=== PATIENT | female | born 1990 | race Caucasian/White ===

== ENCOUNTER 2017-11-27 21:51 | Emergency (ER) | payer BC ==
--- NOTE | 2017-11-27 22:25 | EDM.PDOC ---
ED HPI GENERAL MEDICAL PROBLEM - General Chief Complaint: General Stated Complaint: abd pain illeostomy Time Seen by Provider: 11/27/17 21:55 Source of Information: Reports: Patient History Limitations: Reports: No Limitations - History of Present Illness INITIAL COMMENTS - FREE TEXT/NARRATIVE: According to patient she claims that she has been having abdominal pain all day today. most of the pain is like a band over the upper abdomen from the left to right. no nausea or vomiting. Pt claims that she feels bloated. No nausea or vomiting. No fever or chills. She does have ileostomy in the right lower quadrant which has been draining well. Pt claims the has not resolves. hurts with movement of the abdomen or chest. Pt is concerned if she has bowel obstruction or developing hernia. Also patient claims that she was in the swimming pool and was lifting her child and playing in water, not sure if she strained her abdomen. Onset: Today Location: Reports: Abdomen Quality: Reports: Ache Severity: Mild Improves with: Reports: None Worsens with: Reports: None Associated Symptoms: Denies: Confusion, Chest Pain, Cough, Fever/Chills, Headaches, Nausea/Vomiting, Rash, Seizure, Shortness of Breath, Syncope, Weakness - Related Data Allergies Allergy/AdvReac Type Severity Reaction Status Date / Time cephalexin monohydrate Allergy Hives Verified 09/27/14 22:36 [From Keflex] Penicillins Allergy Anaphylactic Verified 09/27/14 22:36 Shock Home Meds: Home Meds Sertraline [Zoloft] 100 mg PO DAILY 05/15/14 [History] Acetaminophen [Tylenol Extra Strength] 1,000 mg PO Q6HR 09/27/14 [History] Enoxaparin [Lovenox] 100 mg SUBCUT BID 09/27/14 [History] Ibuprofen 600 mg PO Q12HR 09/27/14 [History] ED ROS GENERAL - Review of Systems Review Of Systems: See Below Constitutional: Denies: Fever, Chills, Weakness, Diaphoresis HEENT: Denies: Rhinitis, Throat Pain Respiratory: Denies: Cough, Sputum Cardiovascular: Denies: Chest Pain, Lightheadedness GI/Abdominal: Reports: Abdominal Pain, Flatus, Other (ileostomy functioning). Denies: Constipation, Diarrhea, Nausea, Vomiting : Denies: Flank Pain, Frequency Skin: Denies: Bruising, Pruritis, Rash ED EXAM, GENERAL - Physical Exam Exam: See Below Exam Limited By: No Limitations General Appearance: Alert, WD/WN, No Apparent Distress Eye Exam: Bilateral Eye: EOMI, PERRL Ears: Normal External Exam, Normal Canal, Hearing Grossly Normal, Normal TMs Ear Exam: Bilateral Ear: Auricle Normal, Canal Normal, TM normal Nose: Normal Inspection, Normal Mucosa, No Blood Throat/Mouth: Normal Inspection, Normal Lips, Normal Teeth, Normal Gums, Normal Oropharynx, Normal Voice, No Airway Compromise Head: Atraumatic, Normocephalic Neck: Normal Inspection, Supple, Non-Tender, Full Range of Motion Respiratory/Chest: No Respiratory Distress, Lungs Clear, Normal Breath Sounds, No Accessory Muscle Use, Chest Non-Tender Cardiovascular: Normal Peripheral Pulses Peripheral Pulses: 2+: Brachial (R), Radial (L) GI/Abdominal: Normal Bowel Sounds, Soft, No Distention (Pt does have ileostomy in the RLQ which is fucntioning, there is stool seen. ), No Mass, Tender ( Palpation of abdomen. tender along the costal margin of the chest and upper abdomen bilaterally.), Other. No: Guarding, Rigid, Rebound Course - Vital Signs Text/Narrative:: Pt reassured that her CBC shows white count of 8.5 with normal differentials. Her CT abdomen does not show any signs of obstruction or acute abdominal pathology, she does have parasotium hernial sac. Pt reassured. she probably has strained the abdominal wall muscles along the costal margin or the upper abdomen. Advised motrin 600mg 3 times daily, warm compress the the area of pain 3-4 times daily. Pain should gradually improve. Advised to return to emergency room, if she develops sudden onset of severe abdominal pain, distension ,nausea ,vomiting which are signs of bowel obstruction. Or if she develops high grade fever with chills.Other [place] followup in clinic next week. - Orders/Labs/Meds Orders: Active Orders 24 hr Category Date Time Status Abdomen Pelvis wo Cont [CT] Stat Exams 11/27/17 22:23 Taken Labs: Laboratory Tests 11/27/17 Range/Units 22:35 WBC 8.5 D (4.0-11.0) K/uL RBC 4.39 (3.80-5.80) M/uL Hgb 12.9 (11.5-16.5) g/dL Hct 39.1 (37.0-47.0) % MCV 89 (76-96) fL MCH 29.4 (27.0-32.0) pg MCHC 33.0 (31.0-35.0) g/dL RDW 13.1 (11.0-16.0) % Plt Count 223 D (150-500) K/uL MPV 10.6 H (6.0-10.0) fL Neut % (Auto) 65.3 (45.0-70.0) % Lymph % (Auto) 24.8 (20.0-40.0) % [place] % (Auto) 5.4 (3.0-10.0) % Eos % (Auto) 4.3 (1.0-5.0) % Baso % (Auto) 0.2 (0.0-0.5) % Neut # (Auto) 5.56 (2.00-7.50) K/uL Lymph # (Auto) 2.11 (1.50-4.00) K/uL [place] # (Auto) 0.46 (0.20-0.80) K/uL Eos # (Auto) 0.37 (0.04-0.40) K/uL Baso # (Auto) 0.02 (0.02-0.10) K/uL Departure - Departure Time of Disposition: 23:30 Disposition: Home, Self-Care 01 Condition: Fair Clinical Impression: Abdominal pain - Discharge Information Referrals: PCP,None [Primary Care Provider] - Forms: ED Department Discharge Additional Instructions: Pt reassured that her CBC shows white count of 8.5 with normal differentials. Her CT abdomen does not show any signs of obstruction or acute abdominal pathology, she does have parasotium hernial sac. Pt reassured. she probably has strained the abdominal wall muscles along the costal margin or the upper abdomen. Advised motrin 600mg 3 times daily, warm compress the the area of pain 3-4 times daily. Pain should gradually improve. Avoid lifting heavy weights. Advised to return to emergency room, if she develops sudden onset of severe abdominal pain, distension ,nausea ,vomiting which are signs of bowel obstruction. Or if she develops high grade fever with chills.Other [place] followup in clinic next week. - Problem List & Annotations (1) Abdominal pain SNOMED Code(s): 62810593 Code(s): R10.9 - UNSPECIFIED ABDOMINAL PAIN Status: Acute Current Visit: Yes - Problem List Review Problem List Initiated/Reviewed/Updated: Yes - My Orders Last 24 Hours: My Active Orders 11/27/17 22:23 Abdomen Pelvis wo Cont [CT] Stat - Assessment/Plan Last 24 Hours: My Active Orders 11/27/17 22:23 Abdomen Pelvis wo Cont [CT] Stat Assessment:: Abdominal pain with paraostium hernia sac with no obstruction Plan: Pt reassured that her CBC shows white count of 8.5 with normal differentials. Her CT abdomen does not show any signs of obstruction or acute abdominal pathology, she does have parasotium hernial sac. Pt reassured. she probably has strained the abdominal wall muscles along the costal margin or the upper abdomen. Advised motrin 600mg 3 times daily, warm compress the the area of pain 3-4 times daily. Pain should gradually improve. Advised to return to emergency room, if she develops sudden onset of severe abdominal pain, distension ,nausea ,vomiting which are signs of bowel obstruction. Or if she develops high grade fever with chills.Other [place] followup in clinic next week.
--- NOTE | 2017-11-28 07:41 | CT ---
DATE OF SERVICE: 11/27/17 CLINICAL DATA: acute abdominal pain UNENHANCED ABDOMEN AND PELVIC CT: Multislice acquisition through the abdomen and pelvis without IV or oral contrast was performed. No priors. The lung bases are clear. The unenhanced liver appears normal. The gallbladder appears normal. The spleen appears normal. There is a 12 mm nodule adjacent to the spleen consistent with an accessory spleen. The pancreas appears normal. The right and left adrenals appear normal. The right and left kidneys appear normal. No nephrocalcinosis or nephrolithiasis. No hydronephrosis or hydroureter. There is an ostomy within the anterior abdominal wall on the right. There is a parastomal ventral hernia that contains a loop of small bowel. No evidence of obstruction associated with it. The patient is status post subtotal colectomy. No free air. No free fluid. No dilated loops of bowel. No adenopathy. No aortic aneurysm. No other significant findings. [id number] [facility]
== END 2017-11-27 23:29 | disposition home or self-care (01) ==
LOC: LB.ED 21:51
DX: K46.9 Unspecified abdominal hernia without obstruction or gangrene (principal); Z79.899 Other long term (current) drug therapy; Z88.0 Allergy status to penicillin; Z88.1 Allergy status to other antibiotic agents
CPT/HCPCS: 36415; 74176; 85025; 99284-25

== ENCOUNTER 2019-09-15 15:48 | Emergency (ER) | payer BC ==
[2019-09-15] MEDS ORDERED: Sulfamethoxazole/Trimethoprim 800-160 MG Tab ONE (16:30)
--- NOTE | 2019-09-15 16:50 | EDM.PDOC ---
ED HPI GENERAL MEDICAL PROBLEM - General Chief Complaint: General Stated Complaint: Mastitis Time Seen by Provider: 09/15/19 16:35 Source of Information: Reports: Patient History Limitations: Reports: No Limitations - History of Present Illness INITIAL COMMENTS - FREE TEXT/NARRATIVE: This patient presents to the ED for evaluation of breast pain. She is her 6-month-old who has been teething and not as well as he had been. She started having pain and redness in her left breast 4 days ago. She has been febrile with a Tmax of 103.4; fever responds to acetaminophen. Also states she has a small open area on her nipple. She denies other illnesses including cough or sore throat. She does have a history of an autoimmune disorder but has not been on any immunosuppressive therapy of late. She denies other concerns or concerns. Onset: Gradual Onset Date: 09/12/19 Duration: Getting Worse Location: Reports: Other (left breast) Quality: Reports: Ache Severity: Moderate Improves with: Reports: Heat Therapy Treatments LABORATORY SPECIALIST: Reports: Acetaminophen, Home Treatments - Related Data Allergies Allergy/AdvReac Type Severity Reaction Status Date / Time cephalexin monohydrate Allergy Hives Verified 04/06/18 06:06 [From Keflex] Penicillins Allergy Anaphylactic Verified 04/06/18 06:06 Shock Home Meds: Home Meds Sertraline [Zoloft] 50 mg PO DAILY 05/15/14 [History] Cholecalciferol (Vitamin D3) [Vitamin D3] 10,000 units PO DAILY 09/15/19 [ History] Vit 10/Iron Fum/Folic [Vitafol-OB Caplet] 1 tab PO DAILY 09/15/19 [ History] Past Medical History HEENT History: Reports: Impaired Vision Gastrointestinal History: Reports: Inflammatory Bowel Disease, Other (See Below) Other Gastrointestinal History: Hx ulcerative colitis; colostomy since 06/2014 [employer] History: Reports: Psychiatric History: Reports: Depression Endocrine/Metabolic History: Reports: Hypothyroidism ED ROS GENERAL - Review of Systems Review Of Systems: Comprehensive ROS is negative, except as noted in HPI. ED EXAM, GENERAL - Physical Exam Exam: See Below Exam Limited By: No Limitations General Appearance: Alert, WD/WN, No Apparent Distress Eye Exam: Bilateral Eye: PERRL Ears: Normal External Exam Nose: Normal Inspection Throat/Mouth: Normal Inspection Head: Atraumatic, Normocephalic Neck: Normal Inspection, Supple, Non-Tender, Full Range of Motion Respiratory/Chest: No Respiratory Distress, Other (Inner aspect left breast erythematous, warm to touch, quite tender. 2 mm open area on nipple, no drainage.) Course - Re-Assessments/Exams Free Text/Narrative Re-Assessment/Exam: 09/15/19 16:53 This patient presents for evaluation of breast pain as detailed above. History and physical exam are consistent with mastitits. There does not appear to be any complication of mastitis such as necrotizing fascitis, lymphangitis, lymphadenitis, abscess, osteomyelitis, or sepsis. The patient is not actively immunosuppressed at this time. Plan is for supportive outpatient management including antibiotics, increased frequency of feeding and/or pumping. Close follow-up of primary care physician to ensure no progression and rapid resolution. The patient left with complete understanding and agreement with this plan and no other complaints. Departure - Departure Time of Disposition: 16:50 Disposition: Home, Self-Care 01 Condition: Fair Clinical Impression: Mastitis - Discharge Information Instructions: Mastitis, Sulfamethoxazole; Trimethoprim, SMX-TMP tablets Forms: ED Department Discharge Care Plan Goals: Pump in between feedings. Take bactrim 2 x day until gone. Continue with warm packs. If you find relief from cold packs can use this also. Continue with lanolin to cracked area. Use ibuprofen as you have been for fever. Take antibiotic today and bedtime to get a jump on it.
[2019-09-15 17:09] VITALS: PULSE 80
== END 2019-09-15 16:45 | disposition home or self-care (01) ==
LOC: LB.ED 15:48
DX: N61.0 Mastitis without abscess (principal); E03.9 Hypothyroidism, unspecified; F32.9 Major depressive disorder, single episode, unspecified; Z79.899 Other long term (current) drug therapy; Z88.0 Allergy status to penicillin; Z88.1 Allergy status to other antibiotic agents
CPT/HCPCS: 99282; 99283; A9270

== ENCOUNTER 2020-06-07 10:07 | Emergency (ER) | payer BC ==
[2020-06-07] MEDS ORDERED: Doxycycline 100 MG Cap ONE (14:00)
--- NOTE | 2020-06-07 14:13 | EDM.PDOC ---
ED HPI GENERAL MEDICAL PROBLEM - General Chief Complaint: General Stated Complaint: sinusitis Time Seen by Provider: 06/07/20 14:00 Source of Information: Reports: Patient - History of Present Illness INITIAL COMMENTS - FREE TEXT/NARRATIVE: 29 year old female presents with sinus drainage, CAAL, irritated throat, and fevers and had a COVID positive on May 26. She has been taking sudafed and using the netti pot at home without relief. Symptoms increased yesterday. PMH sinus infections and she states that this feels the same. Location: Reports: Head, Face - Related Data Allergies Allergy/AdvReac Type Severity Reaction Status Date / Time infliximab [From Remicade] Allergy Severe Respiratory Verified 06/07/20 14:08 Distress cephalexin monohydrate Allergy Hives Verified 09/15/19 18:06 [From Keflex] Penicillins Allergy Anaphylactic Verified 09/15/19 18:06 Shock Home Meds: Home Meds Sertraline [Zoloft] 50 mg PO DAILY 05/15/14 [History] Cholecalciferol (Vitamin D3) [Vitamin D3] 10,000 units PO DAILY 09/15/19 [History] Vit 10/Iron Fum/Folic [Vitafol-OB Caplet] 1 tab PO DAILY 09/15/19 [History] Doxycycline [Vibra-Tabs] 100 mg PO Q12HR 10 Days #20 tab 06/07/20 [Rx] Past Medical History - Past Health History Medical/Surgical History: Denies Medical/Surgical History HEENT History: Reports: Impaired Vision Other Respiratory History: pulmonary edema from Rem[place] Gastrointestinal History: Reports: Inflammatory Bowel Disease, Other (See Below) Other Gastrointestinal History: Hx ulcerative colitis; colostomy since 06/2014 [employer] History: Reports: Psychiatric History: Reports: Depression Endocrine/Metabolic History: Reports: Hypothyroidism Immunologic History: Reports: Immunosuppression - Infectious Disease History Infectious Disease History: Reports: MRSA Social & Family History - Family History Family Medical History: No Pertinent Family History ED ROS GENERAL - Review of Systems Review Of Systems: See Below Constitutional: Reports: No Symptoms HEENT: Reports: No Symptoms, Sinus Problem, Throat Pain Respiratory: Reports: No Symptoms Cardiovascular: Reports: No Symptoms Endocrine: Reports: No Symptoms GI/Abdominal: Reports: No Symptoms : Reports: No Symptoms Musculoskeletal: Reports: No Symptoms Skin: Reports: No Symptoms Neurological: Reports: No Symptoms Psychiatric: Reports: No Symptoms Hematologic/Lymphatic: Reports: No Symptoms Immunologic: Reports: No Symptoms ED EXAM, GENERAL - Physical Exam Exam: See Below Exam Limited By: No Limitations General Appearance: Alert, No Apparent Distress Ears: Normal External Exam, Normal Canal, Normal TMs Ear Exam: Bilateral Ear: TM normal, Erythema Nose: Normal Inspection, No Blood, Nasal Drainage, Clear Rhinorrhea Throat/Mouth: Normal Inspection, Normal Oropharynx Head: Atraumatic Neck: Normal Inspection, Full Range of Motion, Lymphadenopathy (R), Lymphadenopathy (L) Respiratory/Chest: No Respiratory Distress, Lungs Clear, Normal Breath Sounds, No Accessory Muscle Use Cardiovascular: Regular Rate, Rhythm, No JVD, No Murmur Back Exam: Normal Inspection, Full Range of Motion Extremities: Normal Inspection, Normal Range of Motion Neurological: Alert, Oriented, Normal Cognition, Normal Gait, No Motor/Sensory Deficits Psychiatric: Normal Affect, Normal Mood Skin Exam: Warm, Dry, Intact Lymphatic: Adenopathy Departure - Departure Time of Disposition: 14:13 Disposition: Admitted As Inpatient 64 Condition: Good Clinical Impression: Acute bacterial sinusitis - Discharge Information *PRESCRIPTION DRUG MONITORING PROGRAM REVIEWED*: Not Applicable *COPY OF PRESCRIPTION DRUG MONITORING REPORT IN PATIENT BRI: Not Applicable Prescriptions: Doxycycline [Vibra-Tabs] 100 mg PO Q12HR 10 Days #20 tab Instructions: Sinusitis, Adult, Bept-au-Lepm, How to Perform a Sinus Rinse, [id number] Additional Instructions: Continue netti pots. Take ibuprofen for pain/fever, stop sudafed, start flonase and doxycycline as directed. Drink plenty of fluids. Return to ED for any increased or new concerning symptoms. Follow up with PMD as needed.
[2020-06-07 14:16] VITALS: BP 109/60; PULSE 100
== END 2020-06-07 14:20 | disposition home or self-care (01) ==
LOC: LB.ED 10:07
DX: J01.80 Other acute sinusitis (principal); B96.89 Other specified bacterial agents as the cause of diseases classified elsewhere; F32.9 Major depressive disorder, single episode, unspecified; Z88.8 Allergy status to other drugs, medicaments and biological substances; Z88.1 Allergy status to other antibiotic agents; Z88.0 Allergy status to penicillin; Z79.899 Other long term (current) drug therapy; Z86.19 Personal history of other infectious and parasitic diseases
CPT/HCPCS: 99283; A9270-GY